=== PATIENT | male | born 1960 | race Caucasian/White ===

== ENCOUNTER → 2016-12-30 | Outpatient (CLI) | payer BC ==
[2016-06-30 14:27] VITALS: BP 116/77; PULSE 87
[~2016-12-30] MED LIST: ATOR-24 PO; GLC/500 PO; LISI-729 PO; LISI2.5T5 PO
[2016-12-30 14:07] VITALS: BP 126/79; PULSE 84; TEMP 36.6; O2SAT 95
--- NOTE | 2016-12-30 14:50 | Radiation Oncology Follow-Up ---
Radiation Oncology Follow-Up Date of Visit December 30, 2016. Radiation Completion Date 11/25/15 and hormonal suppression Diagnosis (1) Prostate cancer Status: Resolved Onset Date: 08/24/2010 Permanent Comment: History of bladder cancer treated with TURBT 2009 Continued surveillance cystoscopies Rising PSA to 8.35 biopsy Status post ultrasound-guided biopsies 08/24/2010, biopsy stage TIIb [place] grade 3+3 Status post radical robotic prostatectomy 10/02/2010 Pathologic stage pT2c pN0M0 Leo 3+3 with a tertiary pattern of 4 Steady rise in PSA most recent PSA 0.872 Status post completion of salvage radiation therapy 11/25/2015 received 7020 cGy Last Edited By: Yael Landry on Dec 01, 2015 15:03 Interim History Mr. Grijalva is a 56-year-old gentleman with a previous history of bladder cancer diagnosed in 2009 treated with a TURBT. 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 The patient's PSA maximilian to 0.872 and the patient elected to undergo salvage radiation therapy which completed in November 2015. The patient did also receive concurrent short course androgen deprivation therapy. The patient now presents for follow-up evaluation. The patient does continue to follow with Dr. Evelin Cole annually. In general, the patient is doing really well. The patient's urinary IPSS score is 0/35. The patient's EPIC QoL score is 2/60. The patient denies any bowel issues or rectal bleeding. The patient has any hematuria. The patient has no complaints. The patient states his sexual function is satisfactory. Allergies Coded Allergies: No Known Allergies (Unverified , 12/09/09) Home Medications Scheduled Atorvastatin (Lipitor), 40 MG PO DAILY Lisinopril (Prinivil), 2.5 MG PO QPM Metformin Hcl (Glucophage), 500 MG PO BID Review of Systems Gastrointestinal: Symptoms: WNL GI Comments: No fiber supplements; Oral: Symptoms: No Problems Respiratory: Symptoms: Moist Cough, Productive Cough Other Respiratory: Pt reports "smokers cough". Continues to smoke Urinary: Symptoms: WNL Comments: Intermittent urgency, but overall back to baseline; Skin: Symptoms: No Problems Physical Exam Vital Signs Date Time Temp Pulse Resp B/P Pulse Ox O2 Delivery O2 Flow Rate FiO2 12/30/16 14:07 36.6 84 16 126/79 95 Pain: Patient Pain Scale: 0 - 10 Initial Pain Intensity: 0.0 General Appearance: WD/WN, no apparent distress Eyes: normal inspection, PERRL, EOMI ENT: normal ENT inspection Respiratory/Chest: chest non-tender, lungs clear, normal breath sounds, no respiratory distress Cardiovascular: regular rate, rhythm, no edema, no gallop, no JVD Neurologic/Psychiatric: fisher swordfish II-XII nml as tested, alert, oriented x 3 Lymphatic: no adenopathy Additional Exam Notes: Rectal Exam: Deferred Laboratory Studies PSA results from today pending. Assessment & Plan Mr. Grijalva is a 56-year-old gentleman with a history of bladder cancer and recurrent prostate cancer status post radical prostatectomy 2010 treated with salvage radiation therapy which completed in November 2015 (concurrent short course androgen deprivation therapy). The patient presents for follow-up evaluation. The patient is doing relatively well overall. His most recent PSA was 0.044 on 06/30/2016. We have drawn for a PSA today. We will communicate the results through letter to the patient. If there are any concerns, I will call the patient to discuss the results. The patient was encouraged cause of his any questions or concerns. The patient will see us back in January [address] Cole in July 2017. We have recommended the patient continue to alternate between Dr. Cole and us and be seen every 6 months with a repeat PSA. The patient was agreeable to this plan. The patient will call suggest any questions or concerns. Total Time In Follow-Up I spent 20 minutes examining and counseling the patient. I spent 15 minutes completing this note. Copy To Willy Francois M.D.; Marito Garces, D.O.Int.Med.; Evelin Cole MD
== END | disposition home or self-care (01) ==
LOC: C.ONC 13:46
PROVIDERS: ATTEND Physician Assistant Medical
DX: Z08 Encounter for follow-up examination after completed treatment for malignant neoplasm (principal); Z92.3 Personal history of irradiation; Z85.46 Personal history of malignant neoplasm of prostate

== ENCOUNTER 2017-02-19 18:02 | Emergency (ER) | payer BC ==
[~2017-02-19] VITALS: Ht 175.3 cm; Wt 77.4 kg
[~2017-02-19 18:02] MED LIST changes: -LISI2.5T5 PO
[2017-02-19 18:04] VITALS: TEMP 36.4; Ht 175.3 cm; Wt 77.4 kg
[2017-02-19] MEDS ORDERED: XYLOCAINE 1%/SOD BICARB 20 ML VIAL INFIL ONE ×2 (18:10→18:30)
[2017-02-19] MEDS ORDERED: DIPHTHERIA/TETANUS/PERTUSSIS 0.5 ML SYR/VIAL ONE (18:15)
--- NOTE | 2017-02-19 18:29 | EMERGENCY ROOM VISIT NOTE ---
ED Visit Note First contact with patient: 18:06 CHIEF COMPLAINT: Left index Finger laceration HISTORY OF PRESENT ILLNESS: This 57-year-old male patient cut the left index finger on a kitchen knife when he was trying to cut a sandwich with a knife upside down. He cannot get the bleeding to stop. The patient is not on any blood thinners. Denies weakness or numbness of the finger. The patient's tetanus status is unknown. REVIEW OF SYSTEMS: 6 system review was performed and was negative unless stated otherwise in history of present illness. PMH: The patient is healthy; diabetic, hernia surgery, prostatectomy, bladder cancer SOCIAL HISTORY: Patient lives alone .patient admits to tobacco use and occasional alcohol use. PHYSICAL EXAM: Vital Signs: Were reviewed Reviewed Nurse's notes. GENERAL: 57- year-old white male appears in no acute distress. MENTAL Status: Alert and oriented 3. LEFT INDEX FINGER: There is a 1.5 cm long laceration on the palmar aspect of the proximal phalanx . the edges gape apart with traction. There is no foreign material in the wound and it looks clean. There is mild active bleeding. No deep structures such as tendons or nerves are seen in the base of the wound. Extension of the finger is full and strong. EMERGENCY DEPARTMENT COURSE: The patient was evaluated. Adacel was given. Wound Repair: Complexity: Basic. Verbal consent was obtained after the risks and benefits were explained, including but not limited to bleeding, scarring, infection, pain, and bone/joint /nerve damage. The skin was prepped with betadine and a sterile field set. The wound was anesthetized with 1.0 ml of 1% buffered lidocaine. With direct pressure the bleeding subsided. Copious irrigation was performed using sterile saline. The wound was explored for foreign bodies and none found. Debridement was not performed. The wound edges were approximated using 5-0 Ethilon with 3 simple interrupted sutures. Hemostasis and excellent approximation was achieved. Antibacterial ointment and a sterile dressing applied. Detailed wound care instructions and signs and symptoms of infection reviewed with the patient. No complications and the patient tolerated the procedure well. DIAGNOSIS: 1.5 cm left index Finger laceration DISCHARGE INSTRUCTIONS & TREATMENT: Keep wound dry for 24 hours. Watch the area carefully for signs of infection such as redness, swelling, or tenderness. Return if any of these appear for re-evaluation and consideration of antibiotic therapy. The stitches should be taken out in 8 days. Keep the wound covered with Bacitracin ointment and a bandage for 3 days. Read the wound care general instructions that you were given also. Problem List Medical Problems: (1) Prostate cancer Permanent Comment: History of bladder cancer treated with TURBT 2009 Continued surveillance cystoscopies Rising PSA to 8.35 biopsy Status post ultrasound-guided biopsies 08/24/2010, biopsy stage TIIb [place] grade 3+3 Status post radical robotic prostatectomy 10/02/2010 Pathologic stage pT2c pN0M0 [place] 3+3 with a tertiary pattern of 4 Steady rise in PSA most recent PSA 0.872 Status post completion of salvage radiation therapy 11/25/2015 received 7020 cGy Status: Resolved Current/Historical Medications Scheduled Atorvastatin (Lipitor), 40 MG PO DAILY Lisinopril (Prinivil), 2.5 MG PO QPM Metformin Hcl (Glucophage), 500 MG PO BID Allergies Coded Allergies: No Known Allergies (Unverified , 12/09/09) Vital Signs Date Time Temp Pulse Resp B/P (MAP) Pulse Ox O2 Delivery O2 Flow Rate FiO2 02/19/17 18:04 36.4 95 20 150/94 95 Room Air Departure Information Patient Instructions My [facility] [place]
[2017-02-19] MEDS ORDERED: DIPHTHERIA/TETANUS/PERTUSSIS 0.5 ML SYR/VIAL IM. ONE (18:30)
[2017-02-19 18:56] VITALS: BP 128/90; PULSE 82; O2SAT 93
== END 2017-02-19 18:57 | disposition home or self-care (01) ==
LOC: C.EDB 18:03 → C.EDD 18:57
DX: S61.211A Laceration without foreign body of left index finger without damage to nail, initial encounter (principal); W26.0XXA Contact with knife, initial encounter; E11.9 Type 2 diabetes mellitus without complications; F17.200 Nicotine dependence, unspecified, uncomplicated; Z23 Encounter for immunization

== ENCOUNTER 2017-02-27 11:36 | Emergency (ER) | payer BC ==
[~2017-02-27] VITALS: Ht 175.3 cm; Wt 75.6 kg
[2017-02-27 11:39] VITALS: BP 131/90; PULSE 82; TEMP 36.4; O2SAT 95; Ht 175.3 cm; Wt 75.6 kg
[2017-02-27] MEDS ORDERED: LISI2.5T5 PO (11:56)
--- NOTE | 2017-02-27 12:13 | EMERGENCY ROOM VISIT NOTE ---
ED Visit Note First contact with patient: 11:53 CHIEF COMPLAINT: Suture removal This patient returns to the ED today for removal of sutures that were placed 8 days ago. There has been no swelling, redness, or drainage from the wound. The patient feels like the laceration is healing well. REVIEW OF SYSTEMS: Head: No headache, injury or neck pain. Skin: No rash, new lesions, or masses. General: No fever or chills, fatigue, loss of appetite , or significant recent weight gain or loss. PMH: The patient is healthy; there is no significant medical or surgical history. SOCIAL HISTORY: Patient lives at home. PHYSICAL EXAM: Vital Signs: Reviewed Nurse's notes. There is a sutured wound on the left second finger with no signs of infection. There is no erythema, swelling, or tenderness. EMERGENCY DEPARTMENT COURSE: The sutures were removed without any difficulty and there was no separation of the wound edges. Problem List Medical Problems: (1) Prostate cancer Permanent Comment: History of bladder cancer treated with TURBT 2009 Continued surveillance cystoscopies Rising PSA to 8.35 biopsy Status post ultrasound-guided biopsies 08/24/2010, biopsy stage TIIb [place] grade 3+3 Status post radical robotic prostatectomy 10/02/2010 Pathologic stage pT2c pN0M0 [place] 3+3 with a tertiary pattern of 4 Steady rise in PSA most recent PSA 0.872 Status post completion of salvage radiation therapy 11/25/2015 received 7020 cGy Status: Resolved Current/Historical Medications Scheduled Atorvastatin (Lipitor), 40 MG PO DAILY Lisinopril (Lisinopril), 2.5 MG PO QPM Metformin Hcl (Glucophage), 500 MG PO BID Allergies Coded Allergies: No Known Allergies (Unverified , 02/27/17) Vital Signs Date Time Temp Pulse Resp B/P (MAP) Pulse Ox O2 Delivery O2 Flow Rate FiO2 02/27/17 11:39 36.4 82 18 131/90 95 Room Air Departure Information Impression Primary Impression: Encounter for removal of sutures Dispostion Home / Self-Care Condition GOOD Referrals No Doctor, Assigned (PCP) Patient Instructions My [facility] Additional Instructions Wash any remaining crusts off of the wound today and resume your normal activities. Follow-up with your PCP as needed.
== END 2017-02-27 12:19 | disposition home or self-care (01) ==
LOC: C.EDB 11:37 → C.EDD 12:19
DX: S61.211D Laceration without foreign body of left index finger without damage to nail, subsequent encounter (principal); X58.XXXD Exposure to other specified factors, subsequent encounter; Z85.51 Personal history of malignant neoplasm of bladder; Z85.46 Personal history of malignant neoplasm of prostate; Z90.79 Acquired absence of other genital organ(s); Z98.890 Other specified postprocedural states

== ENCOUNTER → 2017-06-23 | Outpatient (CLI) | payer BC ==
[~2017-06-23] MED LIST changes: -LISI-729 PO; +LISI2.5T5 PO
[2017-06-23 14:45] LABS: BASO % 0.1 %; BASO ABS # 0.01 K/uL (0-0.2); COMPLETE YES; EOS % 1.6 %; HEMATOCRIT 44.5 % (42-52); IG% 0.3 %; LYMPH % 18.6 %; LYMPH ABS # 1.37 K/uL (1.2-3.4); MEAN CORPUSCULAR HEMOGLOBIN 33.3 pg (25-34); MEAN CORPUSCULAR HGB CONC 33.9 g/dl (32-36); MEAN PLATELET VOLUME 10.2 fL (7.4-10.4); MONO % 6.3 %; NEUT % 73.1 %; PLATELET COUNT 214 K/uL (130-400); RED BLOOD COUNT 4.54 M/uL (4.7-6.1); WHITE BLOOD COUNT 7.35 K/uL (4.8-10.8)
[2017-06-23 15:07] LABS: CREATININE RANDOM URINE 59.6 mg/dl
[2017-06-23 15:25] LABS: ALT/SGPT 28 U/L (12-78); BLOOD UREA NITROGEN 13 mg/dl (7-18); BUN/CREATININE RATIO 12.8 (10-20); CALCIUM 9.5 mg/dl (8.5-10.1); CARBON DIOXIDE 28 mmol/L (21-32); CHLORIDE 106 mmol/L (98-107); CREATININE 0.98 mg/dl (0.60-1.40); GLUCOSE 90 mg/dl (70-99); HDL CHOLESTEROL 51 mg/dl; POTASSIUM 3.7 mmol/L (3.5-5.1); SODIUM 139 mmol/L (136-145)
[2017-06-23 15:34] LABS: ALB/GLOB RATIO 1.2 (0.9-2); ALKALINE PHOSPHATASE 91 U/L (45-117); AST/SGOT 12 U/L (15-37); CHOLESTEROL 179 mg/dl (0-200); CHOLESTEROL/HDL RATIO 3.5; LDL CHOLESTEROL CALCULATED 99 mg/dl; TRIGLYCERIDES 145 mg/dl (0-150); VERY LOW DENSITY LIPOPROT CALC 29 mg/dl
[2017-06-24 05:54] LABS: ESTIMATED AVERAGE GLUCOSE 137 mg/dl; HA1C FLAG Normal (Normal)
== END | disposition home or self-care (01) ==
LOC: C.LAB 13:41
PROVIDERS: ATTEND Internal Medicine
DX: E11.29 Type 2 diabetes mellitus with other diabetic kidney complication (principal)

== ENCOUNTER → 2017-12-22 | Outpatient (CLI) | payer BC ==
[~2017-12-22] MED LIST changes: +LISI-1116 PO; -LISI2.5T5 PO
[2017-12-22 16:46] LABS: ALBUMIN 4.1 gm/dl (3.4-5.0); ALT/SGPT 30 U/L (12-78); AST/SGOT 16 U/L (15-37); BLOOD UREA NITROGEN 16 mg/dl (7-18); CALCIUM 9.2 mg/dl (8.5-10.1); CARBON DIOXIDE 26 mmol/L (21-32); CHOLESTEROL 151 mg/dl (0-200); GLUCOSE 93 mg/dl (70-99); POTASSIUM 3.8 mmol/L (3.5-5.1); SODIUM 140 mmol/L (136-145)
[2017-12-22 16:49] LABS: ALKALINE PHOSPHATASE 90 U/L (45-117); LDL CHOLESTEROL CALCULATED 80 mg/dl; TOTAL PROTEIN 7.6 gm/dl (6.4-8.2)
[2017-12-23 06:30] LABS: HEMOGLOBIN A1C 6.5 % (4.5-5.6)
== END | disposition home or self-care (01) ==
LOC: C.LABBFT 13:57
PROVIDERS: ATTEND Physician Assistant Medical
DX: E78.5 Hyperlipidemia, unspecified (principal); E11.29 Type 2 diabetes mellitus with other diabetic kidney complication